=== PATIENT | male | born 1955 | race Caucasian/White ===

== ENCOUNTER 2019-05-22 17:07 | Emergency (ER) | payer MEDICAID ==
[~2019-05-22] VITALS: Ht 170.2 cm; Wt 86.4 kg
[2019-05-22 17:16] VITALS: Ht 170.2 cm; Wt 86.4 kg
[2019-05-22 20:53] LABS: BASOPHIL % 0.6 % (0-2); PLATELET COUNT 253 x10^3mcL (130-400); RED CELL DISTRIBUTION WIDTH 13.9 % (11.5-14.5)
[2019-05-22 21:00] LABS: CALCIUM 8.4 mg/dL (8.5-10.1); CARBON DIOXIDE 28.5 mmol/L (21-32); CHLORIDE SERUM 105 mmol/L (98-107); GFR1 > 60 mL/min; GLUCOSE SERUM 144 mg/dL (74-106); SODIUM SERUM 141 mmol/L (136-145)
[2019-05-22 21:05] LABS: ALBUMIN 3.7 g/dL (3.4-5.0); ALKALINE PHOSPHATASE 51 U/L (46-116); ALT/SGPT 59 U/L (16-63); AST/SGOT 22 U/L (15-37); BILIRUBIN TOTAL 0.26 mg/dL (0.20-1.00); TOTAL PROTEIN, SERUM 6.9 g/dL (6.4-8.2)
[2019-05-22 21:41] VITALS: BP 150/103
== END 2019-05-22 21:41 | disposition home or self-care (01) ==
LOC: ED 17:07
PROVIDERS: Emergency Medicine
DX: I10 Essential (primary) hypertension (principal); F17.210 Nicotine dependence, cigarettes, uncomplicated; R51 Headache
CPT/HCPCS: 36415; Q0092

== ENCOUNTER 2019-07-09 22:56 | Emergency (ER) | payer MEDICAID ==
[~2019-07-09] VITALS: Ht 170.2 cm; Wt 83.0 kg
[2019-07-09 23:01] VITALS: Ht 170.2 cm; Wt 83.0 kg
[2019-07-10 02:29] VITALS: BP 102/58
== END 2019-07-10 02:29 | disposition home or self-care (01) ==
LOC: ED 22:56
DX: J40 Bronchitis, not specified as acute or chronic (principal); J06.9 Acute upper respiratory infection, unspecified
CPT/HCPCS: 87804; J1885; Q0162